=== PATIENT | male | born 1965 | race Caucasian/White ===

== ENCOUNTER 2018-11-05 11:57 | Inpatient (IN) ==
[2018-11-05] MEDS ORDERED: Naloxone 0.4 MG/ML INJ IVP PRN (16:24)
[2018-11-05] MEDS ORDERED: *HR* Heparin 5,000 UNIT/ML VIAL IVP PRN ×2 (16:32)
[2018-11-05] MEDS ORDERED: *HR* Heparin 5,000 UNIT/ML VIAL IVP ONE (16:32)
[2018-11-05 16:36] LABS: Heparin anti-factor XA UFH 0.22 IU/mL (0.30-0.70)
[2018-11-05] MEDS ORDERED: Nitroglycerin 0.4 MG TAB.SUBL SL PRN (16:36)
[2018-11-05] MEDS ORDERED: Ipratropium/Albuterol Neb 3 ML IH PRN (16:37)
[2018-11-05] MEDS ORDERED: Dextrose Gel 15 GM/37.5 ML TUBE PO PRN ×2 (16:38)
[2018-11-05] MEDS ORDERED: *HR* Dextrose 50 % in Water (Syg) 50 ML SYRINGE IVP PRN (16:38)
[2018-11-05] MEDS ORDERED: D5% in Water 1,000 ML IVC PRN (16:38)
[2018-11-05 16:48] LABS: Troponin I 0.78 ng/mL (< 0.04)
--- NOTE | 2018-11-05 16:53 | Internal Med History&Physical ---
<Bindu Easton - Last Filed: 11/05/18 17:54> Date of Encounter: 11/05/18 Time of Encounter: 16:00 Internal Medicine - H&P: HPI Chief complaint: Chest pain Admitted From: Hospital to Hospital Transfer History of present illness: Mr. Allred is a 53 year old male was transferred from [facility] after an episode of crushing chest pain this morning. Past medical history of OK with stent placement, COPD, diabetes and is a current smoker. He does have family history significant for cardiac disease. His most recent OK was in 2009 and had 2 different events of stent placement. He is unsure of how many stent he has. He also reported not taking any of his medication the past 7 months after losing his medical insurance. Upon further questioning he does not take daily baby aspirin or monitor his glucose. He reports chest pain ongoing for 3 days which worsened last night but did not want to come to the hospital. He reported this morning the chest pain was crushing and radiated to his left arm while he was at rest. At the onset of chest pain he described sensation of heaviness in as if someone was sitting on him. He denied any nausea or emesis during that event. [facility] troponins drawn which showed initial troponin 0.06 and unsure of the following troponin level. He also had an EKG showing T-wave depression just on lead 1. Repeat EKG showed normal sinus rhythm. He received sublingual nitroglycerin which did not see resolve his chest pain. He reports chest pain resolved 1-1/2 hour after being on heparin drip. Also during his stay in the ER [facility] he was noted to have unsustained event of ventricular tachycardia. His magnesium was noted to be 1.8 which was normal to low and his potassium was 3.6. His white count was noted to be mildly elevated at 10.0. Remainder of his labs were within normal limits. He was subsequently transferred to [facility] as he may require further cardiac intervention. Repeat troponin right now is 0.78. Continues to remain asymptomatic without any EKG changes. Currently he is resting in bed and is pain-free. He denies any stressful recent events or any recent illnesses. His vitals are reviewed and appears to be normal sinus rhythm with heart rate and blood pressure within normal limits. Denies fever, chills, nausea, emesis, shortness of breath, abdominal pain, orthopnea or PND. Past Med Surg Social Fam HX - Past Medical History Medical history: asthma, COPD, diabetes, myocardial infarction Psychiatric history: anxiety, depression - Past Surgical History Additional surgical history: heart stents, - Social History Smoking Status: Current every day smoker Packs per day: 1/2 pack Smokeless Tobacco Status: No Alcohol use: none Drug use: none Internal Medicine - H&P: Meds Allergy/AdvReac Type Severity Reaction Status Date / Time No Known Allergies Allergy Unverified 12/17/17 09:26 All Systems PM: A 10-system review of systems was performed and is negative for pertinent findings except as documented above in the HPI. - Constitutional Constitutional: no chills, no fever(s), no weakness - EENT Eyes: no blurry vision, no change in vision, no dry eye, no loss of vision - Cardiovascular Cardiovascular ROS IM: no chest pain, no dyspnea, no dyspnea on exertion, no orthopnea, no palpitations - Respiratory Respiratory: no cough, no dyspnea, no dyspnea on exertion - Gastrointestinal Gastrointestinal: no constipation, no diarrhea, no nausea - Musculoskeletal Musculoskeletal ROS IM: no numbness, no tingling - Integumentary Integumentary IM: no erythema, no rash - Neurological Neurological ROS: no numbness, no tingling, no weakness - Psychiatric Psychiatric: no anxiety, no depression - Endocrine Endocrine IM: no fatigue, no flushing - Constitutional Vitals: Temp Pulse Resp BP Pulse Ox 97.6 F 68 22 129/83 97 11/05/18 15:29 11/05/18 15:29 11/05/18 15:29 11/05/18 15:29 11/05/18 15:29 Exam: Gen: Vitals noted. No acute distress. Appears comfortable. Eyes: anicteric sclerae, moist conjunctivae; no lid-lag; Pupils equal and reactive to light HENT: Atraumatic; oropharynx clear with moist mucous membranes and no mucosal ulcerations; normal hard and soft palate Neck: Trachea midline; supple, no thyromegaly or lymphadenopathy, no carotid bruit Cardiac: RRR, no murmur, +S1/S2. No JVD noted. Pulmonary: CTA bilaterally, no wheezes, rales or rhonchi, equal chest expansion Abdomen: soft, nontender, no guarding, noted umbilical hernia MSK: ROM intact, no joint swelling noted Extremities: no edema, nontender calf; peripheral pulses +2 out of 4 bilateral lower extremities Skin: Normal temperature, turgor; no rash, ulcers or subcutaneous nodules Neuro: moves all extremities, no focal deficits. Psych: Appropriate mood and behavior. A&Ox3 - Assessment and Plan (1) NSTEMI (non-ST elevated myocardial infarction) Current Visit: Yes Status: Acute Assessment and plan: Presented to [facility] with chest pain ongoing for 3 days chest pain worsened today described as crushing with radiation to the left arm. Significant history of cardiovascular disease. Previous OK was in 2009 and has had episodes of stent placement. EKG at a showed T-wave depression in lead 1 and repeat was normal. Initial troponin was 0.06, repeat troponin now is 0.78. He is currently chest pain-free on heparin drip. -Cardiology is consulted -We will continue to trend troponin every 6 hours 3, if further has any EKG changes or chest pain consider urgent catheterization -Continue heparin drip -Ordered beta ed, aspirin, high intensity statin -Lipids pending for tomorrow -Sublingual nitroglycerin when necessary ordered -Continue telemetry (2) Arrhythmia Current Visit: Yes Status: Resolved Assessment and plan: Had an episode of nonsustained ventricular tachycardia at outside facility. Unknown cause as the likely due to ischemic event -Replete potassium -Continue telemetry -Continue to monitor electrolytes with BMP tomorrow Qualifiers: Arrhythmia type: ventricular tachycardia Qualified Code(s): I47.2 - Ventricular tachycardia (3) Diabetes Current Visit: Yes Status: Acute Assessment and plan: History of diabetes has not been taking any of his medications at home due to losing his insurance. Unsure as A1c -Continue to monitor glucose with low sliding scale ordered. 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 Currently comfortable in room air. On exam does have diffuse wheezing. Denies any cough or shortness of breath. Avoiding any beta agonist due to risk of arrhythmia Qualifiers: COPD type: emphysema Emphysema type: unspecified Qualified Code(s): J43.9 - Emphysema, unspecified (5) Morbid obesity Current Visit: Yes Status: Acute Assessment and plan: BMI of 43.4 Cardiac diet ordered (6) Tobacco abuse Current Visit: Yes Status: Acute Assessment and plan: History of tobacco use and is a current smoker. Reports history of smoking since age of 12 and used to smoke 3 packs per day and has decreased to 1 pack now. [id number] history. -Provided smoking cessation counseling (7) DVT prophylaxis Current Visit: Yes Status: Acute Assessment and plan: Currently on heparin drip - Time Spent With Patient Total time spent is greater than 50% in coordination of care (as documented) at patient's floor/unit and/or counseling patient: <Sebastian Mcleod - Last Filed: 11/05/18 19:32> Date of Encounter: 11/05/18 All Systems PM: A 10-system review of systems was performed and is negative for pertinent findings except as documented above in the HPI. Internal Med - H&P Results - Labs Labs: Cardiac Enzymes 11/05/18 Range/Units 16:11 Troponin I 0.78 H* (< 0.04) ng/mL - Time Spent With Patient Total time spent is greater than 50% in coordination of care (as documented) at patient's floor/unit and/or counseling patient: - Attending Attestation Patient seen and examined independently. Objective data has been reviewed including outside hospital records including labs, imaging, and ECGs. I agree with the plan of care as documented above by the resident, with the following comments: 53 M w hx CAD s/p stents, morbid obesity, smoker, HTN, DM2, who p/w chest pain, TWI in single lead on single ECG, and elevated trop, concerning for NSTEMI. Pt given ASA and brillinta, hep gtt started, and transferred here for cardiology evaluation and likely heart cath. NPO@AK. Start metoprolol 12.5 bid and atorvastatin 80, defer ACEi until after [facility]. Currently chest pain free and resting comfortably.
[2018-11-05] MEDS: Heparin 25,000 UNIT/250 ML D5W 25,000 UNIT/250 ML IV.SOLN IVC SCH (17:10)
[2018-11-05] MEDS ORDERED: Levalbuterol Neb 1.25 MG/3 ML IH PRN (17:16)
[2018-11-05 17:24] LABS: Magnesium 1.7 mg/dL (1.6-2.6)
[2018-11-05 17:38] LABS: Estimated Average Glucose 240 mg/dl
[2018-11-05 17:58] LABS: INR 1.1; Prothrombin Time 12.8 Seconds (9.4-12.1)
[2018-11-05] MEDS ORDERED: Insulin LISPRO 300 UNITS/3 ML VIAL SQ SCH ×2 (18:00→21:00)
[2018-11-05] MEDS: Insulin LISPRO 300 UNITS/3 ML VIAL SQ SCH (21:32)
[2018-11-06 04:32] LABS: Basophils # 0.1 K/mcL (0.0-0.2); Basophils % 0.7 %; Eosinophils # 0.3 K/mcL (0.0-0.6); Eosinophils % 3.2 %; Hematocrit 45.3 % (37.5-50.1); Hemoglobin 14.8 g/dL (12.9-16.9); Immature Granulocytes % 1.4 % (0-4); Lymphocytes # 3.8 K/mcL (0.6-4.6); Lymphocytes % 40.1 %; Mean Corpuscular HGB Conc 32.7 g/dL (31.6-35.5); Mean Corpuscular Hemoglobin 30.4 pg (28.0-33.3); Mean Platelet Volume 10.7 fL (9.4-12.4); Monocytes # 0.6 K/mcL (0.0-1.3); Monocytes % 6.3 %; Neutrophils # 4.6 K/mcL (1.6-8.9); Platelet Count 241 K/mcL (140-400); Red Blood Count 4.87 M/mcL (4.19-5.50); Red Cell Distribution Width 13.5 % (11.5-14.5); Segmented Neutrophils % 48.3 %
[2018-11-06] MEDS: Heparin 25,000 UNIT/250 ML D5W 25,000 UNIT/250 ML IV.SOLN IVC SCH (04:49)
[2018-11-06 04:52] LABS: BUN/Creatinine Ratio 17 (6-26); Blood Urea Nitrogen 9 mg/dL (6-20); Carbon Dioxide 22 mEq/L (23-29); Chloride 108 mEq/L (98-107); Chol/HDL Ratio 7.1 (0-4.9); Cholesterol 233 mg/dL (< 200); Glucose 139 mg/dL (70-105); HDL Cholesterol 33 mg/dL (40-59); LDL Cholesterol,Calculated 125 mg/dL (0-99); Osmolality,Calculated 289 (280-300); Potassium 3.9 mEq/L (3.5-5.1); Sodium 139 mEq/L (136-145); Triglycerides 376 mg/dL (< 150); eGFR For Non-African Americans > 60 (> 60)
--- NOTE | 2018-11-06 08:24 | Cardiology Consult Note ---
<Diego Aquino - Last Filed: 11/06/18 11:14> Date of Encounter: 11/06/18 Time of Encounter: 08:24 Assessment and Plan (1) NSTEMI (non-ST elevated myocardial infarction) Current Visit: Yes Status: Acute 53 year old male with CAD with cardiac stents x3, COPD, diabetes mellitus 2, and tobacco dependence who presented from [facility] complaining of intermittent chest pain for the past 3 days and one episode of ventricular tachycardia prior to transfer. Chest pain was a pressure-like crushing sensation at rest that radiated to his left arm. Chest pain did not improve after sublingual nitroglycerin. Patient reports stopping all his meds including aspirin and Plavix seven months ago after losing his insurance. Serial troponin peaked at 1.64 EKG revealed normal sinus rhythm with T-wave inversions in leads V2-V3. Patient is on a heparin drip. Patient is currently chest pain free. Echo pending. Continue aspirin, Brilinta, beta ed, and statin. NPO, anticipate [facility] this afternoon. (2) CAD (coronary artery disease) Current Visit: Yes Status: Chronic TTE 12/17/17 revealed LVEF 55-60%, mild left ventricular diastolic dysfunction, normal right ventricular structure and function, no significant valvular dysfunction, and no pulmonary hypertension. Repeat echo pending. Nuclear stress test 12/17/17 perfusion imaging was negative for ischemia or in farct. Apical thinning artifact. Pharmacologic stress ECG is nondiagnostic for ischemia due to baseline nonspecific ST and T abnormalities. Patient had chest pain/pressure during pharmacologic stress. Gated EF < 59%. In 2003, he underwent angioplasty and stent of LAD lesion. In 2009, he had a second procedure again with angioplasty and stent of an LAD lesion and a circumflex lesion. Continue aspirin, Brilinta, beta ed, and statin. Qualifiers: Coronary Disease-Associated Artery/Lesion type: [place] artery [place] vs. transplanted heart: [place] heart Associated angina: angina presence unspecified Qualified Code(s): I25.10 - Atherosclerotic heart disease of [place] coronary artery without angina pectoris (3) HTN (hypertension) Current Visit: No Status: Chronic Blood pressure is controlled. Continue beta ed. Qualifiers: Hypertension type: essential hypertension Qualified Code(s): I10 - Essential (primary) hypertension (4) HLD (hyperlipidemia) Current Visit: Yes Status: Chronic Continue statin. Qualifiers: Hyperlipidemia type: unspecified Qualified Code(s): E78.5 - Hyperlipidemia, unspecified (5) DM type 2 (diabetes mellitus, type 2) Current Visit: No Status: Chronic Management per primary team. 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 Qualifiers: Hypothyroidism type: unspecified Qualified Code(s): E03.9 - Hypothyroidism, unspecified (7) COPD (chronic obstructive pulmonary disease) Current Visit: No Status: Chronic Management per primary team. Qualifiers: COPD type: emphysema Emphysema type: unspecified Qualified Code(s): J43.9 - Emphysema, unspecified (8) Tobacco abuse Current Visit: Yes Status: Chronic Tobacco cessation discussed. (9) RORY on CPAP Current Visit: No Status: Chronic Management per primary team. (10) BMI 40.0-44.9, adult Current Visit: Yes Status: Chronic Lifestyle modification. Discussion w patient/family: The assessment and plan as outlined above was discussed with the patient and/or family members who expressed understanding and agreement. All questions were answered. Thank you for involving us in the care of your patient. Please call with any questions. History of Present Illness Consult date: 11/06/18 Requesting physician: Bindu Easton Consult reason: Chest pain with elevated troponin Chief complaint: Chest pain History of present illness: Mr. Allred is a 53 year old male with a past medical history of hypertension, hyperlipidemia, CAD with cardiac stents x3, COPD, diabetes mellitus 2, hypothyroidism, morbid obesity, RORY on CPAP, and tobacco dependence who presen pilar from [facility] complaining of intermittent chest pain for the past 3 days and one episode of ventricular tachycardia prior to transfer. Chest pain was a pressure-like crushing sensation at rest that radiated to his left arm. He denies any associated nausea, vomiting, diaphoresis, or shortness of breath. Of note, patient reports stopping all his meds including aspirin and Plavix seven months ago after losing his insurance. Serial troponin peaked at 1.64 and EKG revealed normal sinus rhythm with T-wave inversions in leads V2-V3. Patient was started on heparin drip. Chest pain did not improve after sublingual nitroglycerin. Patient is currently chest pain free. Previous testing: TTE 12/17/17 revealed LVEF 55-60%, mild left ventricular diastolic dysfunction, normal right ventricular structure and function, no significant valvular dysfunction, and no pulmonary hypertension. Nuclear stress test 12/17/17 perfusion imaging was negative for ischemia or infarct. Apical thinning artifact. Pharmacologic stress ECG is nondiagnostic for ischemia due to baseline nonspecific ST and T abnormalities. Patient had chest pain/pressure during pharmacologic stress. Gated EF < 59%. In 2003, he underwent angioplasty and stent of LAD lesion. In 2009, he had a second procedure again with angioplasty and stent of an LAD lesion and a circumflex lesion. Past Med Surg Social Fam HX - Past Medical History Medical history: asthma, COPD, diabetes, myocardial infarction Psychiatric history: anxiety, depression - Past Surgical History Additional surgical history: heart stents, - Social History Smoking Status: Current every day smoker Packs per day: 1/2 pack Smokeless Tobacco Status: No Alcohol use: none Drug use: none - Family History Mother Living Status: Still Living Hx Family Cardiac Disorders: Yes (Hypertension) Hx Family Cancer: Yes Hx Family Endocrine Disorder: Yes (Diabetes) Father Living Status: Still Living Hx Family Cardiac Disorders: Yes (Hypertension) Hx Family Medical Disorders: Yes (COPD) Sister Hx Family Endocrine Disorder: Yes (Diabetes) Hx Family Medical Disorders: Yes (DVT) Daughter Hx Family Cancer: Yes (Thyroid) Hx Family Autoimmune Disorders: Yes (Thyroid disease) Medications and Allergies No Known Home Drugs 11/06/18 [History] Allergy/AdvReac Type Severity Reaction Status Date / Time No Known Allergies Allergy Unverified 11/06/18 10:37 All Systems Review: The remainder of the systems were reviewed and are negative - Constitutional Constitutional: no chills, no fatigue, no fever(s), no lethargy, no weakness - EENT Nose, mouth and throat: no dysphagia, no sore throat - Cardiovascular Cardiovascular: chest pain at rest, chest pain with exertion, irregular heart rhythm, palpitations, no dyspnea at rest, no dyspnea on exertion, no leg edema, no orthopnea, no syncope - Respiratory Respiratory: no cough, no dyspnea - Gastrointestinal Gastrointestinal: no abdominal pain, no nausea - Genitourinary Genitourinary: no dysuria, no hematuria - Musculoskeletal Musculoskeletal: no abnormal gait, no arthralgias, no myalgias - Integumentary Integumentary: no erythema, no rash - Neurological Neurological: no dizziness, no syncope - Psychiatric Psychiatric: no anxiety, no depression - Hematological/Lymphatic Hematologic/Lymphatic: no easy bleeding, no easy bruising Physical Examination Vital Signs, Last 4 Hours Temp Pulse Resp BP Pulse Ox 11/06/18 07:55 98.2 F 81 16 124/80 96 11/06/18 04:41 98.1 F 81 16 118/72 93 General: Conversant, No Apparent Distress (morbidly obese) HEENT: Atraumatic, Normocephaly, Other (mucous membranes dry) Neck: No JVD, Normal carotid pulses Cardiac: Reg Rate and Rhythm, Normal S1 and S2, No Murmur Lungs: Other (mild expiratory wheezing) Neuro: Alert and responsive, No focal deficits noted Abdomen: Soft, Non-Tender Skin: No rashes noted on visualized skin Musculoskeletal: No Chest Wall Tenderness Extremities: No Clubbing, No Cyanosis, No Edema, Normal Pulses Results 11/06/18 04:00 11/06/18 04:00 Lab Results 11/05/18 11/05/18 11/05/18 16:11 16:11 22:28 WBC Hgb Hct Plt Count INR 1.1 Sodium Potassium Chloride Carbon Dioxide BUN Creatinine Glucose Calcium Magnesium 1.7 Troponin I 0.78 H* 1.64 H* 11/06/18 11/06/18 11/06/18 04:00 04:00 04:00 WBC 9.6 Hgb 14.8 Hct 45.3 Plt Count 241 INR Sodium 139 Potassium 3.9 Chloride 108 H Carbon Dioxide 22 L BUN 9 Creatinine 0.52 L Glucose 139 H Calcium 9.0 Magnesium Troponin I 1.18 H* - EKG Interpretation EKG results cardiology: personally reviewed, sinus rhythm (HR 77, T-wave inversions in leads V2-V3) Consult Discharge Plan - Plan Referrals: Enriqueta Mathews, [facility] [Primary Care Provider] - <Pamela A - Last Filed: 11/06/18 16:03> Date of Encounter: 11/06/18 - Attending Attestation I have personally performed a face to face evaluation on this patient. I have reviewed and agree with the documented findings and care plan as documented by the resident. History and Exam by me shows: 53-year-old male with diabetes, CAD, current everyday smoker, admitted for NSTEMI. He needs cardiac catheterization.Risks, benefits, alternatives were explained to the patient and he wishes to proceed. All questions were answered. He was urged to quit smoking. Lifestyle modification recommended to ameliorate risk of cardiac events. Thanks, Gutierrez Santiago MD FAC Assessment and Plan Discussion w patient/family: The assessment and plan as outlined above was discussed with the patient and/or family members who expressed understanding and agreement. All questions were answered. Thank you for involving us in the care of your patient. Please call with any questions. History of Present Illness History of present illness: Mr. Allred is a 53 year old male All Systems Review: The remainder of the systems were reviewed and are negative Physical Examination Vital Signs, Last 4 Hours Temp Pulse Resp BP Pulse Ox 11/06/18 15:15 97.7 F 69 16 128/87 97 Results 11/06/18 04:00 11/06/18 04:00 Lab Results 11/05/18 11/05/18 11/05/18 16:11 16:11 22:28 WBC Hgb Hct Plt Count INR 1.1 Sodium Potassium Chloride Carbon Dioxide BUN Creatinine Glucose Calcium Magnesium 1.7 Troponin I 0.78 H* 1.64 H* TSH 11/06/18 11/06/18 11/06/18 04:00 04:00 04:00 WBC 9.6 Hgb 14.8 Hct 45.3 Plt Count 241 INR Sodium 139 Potassium 3.9 Chloride 108 H Carbon Dioxide 22 L BUN 9 Creatinine 0.52 L Glucose 139 H Calcium 9.0 Magnesium Troponin I 1.18 H* TSH 2.652 11/06/18 10:05 WBC Hgb Hct Plt Count INR Sodium Potassium Chloride Carbon Dioxide BUN Creatinine Glucose Calcium Magnesium Troponin I 0.75 H* TSH
[2018-11-06] MEDS: Insulin LISPRO 300 UNITS/3 ML VIAL SQ SCH ×4 (08:25→20:04)
[2018-11-06] MEDS: *HR* Ticagrelor 90 MG TABLET PO SCH ×2 (08:25→20:01)
[2018-11-06] MEDS: Aspirin 81 MG TAB.CHEW PO SCH (08:25)
[2018-11-06 11:24] LABS: Thyroid Stimulating Hormone 2.652 mcIU/mL (0.340-5.600)
[2018-11-06] MEDS ORDERED: *HR* Heparin 10,000 UNIT/10 ML VIAL ONE (12:41)
[2018-11-06] MEDS ORDERED: 0.9 % Sodium Chloride 1,000 ML ONE ×2 (12:41→12:43)
[2018-11-06] MEDS ORDERED: Heparin 1,000 UNITS/500 mL 500 ML ONE (12:41)
[2018-11-06] MEDS ORDERED: Nitroglycerin 1,000 MCG/10 ML VIAL IV ONE (12:41)
[2018-11-06] MEDS ORDERED: ISOVUE-370 200 ML INFUS..BTL ONE ×2 (12:41→14:36)
[2018-11-06] MEDS ORDERED: *HR* Midazolam HCl 2 MG/2 ML VIAL ONE (13:56)
[2018-11-06] MEDS ORDERED: *HR* FentaNYL (PF) 100 MCG/2 ML VIAL ONE (13:56)
[2018-11-06] MEDS ORDERED: Tirofiban 12.5 MG/250ML 12.5 MG/250 ML BAG ONE (14:20)
[2018-11-06] MEDS ORDERED: *HR* Ticagrelor 90 MG TABLET ONE (14:48)
--- NOTE | 2018-11-06 15:08 | Pre-Sedation Evaluation ---
Pre-sedation evaluation - Pre-sedation checklist Date of procedure: 11/06/18 Procedure: heart cath Recent Vitals: Last Vital Signs Temp 97.7 F 11/06/18 11:05 Pulse 62 11/06/18 11:05 Resp 18 11/06/18 11:05 BP 122/90 11/06/18 11:05 Pulse Ox 98 11/06/18 11:05 H&P (including ROS) documented in medical record: Yes Previous reaction to sedatives/anesthetics: No Dietary Status: NPO after Midnight Dentition: poor dentition ASA Classification *see protocol: CLASS II-Mild systemic disease Cardiac Registry (Cardio Only) - Functional Capacity Functional Capacity: >=4 METS with symptoms - Clincal Frailty Scale Clinical Frailty Scale: Managing Well
[2018-11-06] MEDS ORDERED: Tirofiban 12.5 MG/250ML 12.5 MG/250 ML BAG IVC SCH (15:15)
--- NOTE | 2018-11-06 15:20 | Invasive Diagnostic Lab Proc ---
Name: Darin Allred Date of Study: 11/06/2018 Date: 1965 Ht: 61.8in Medical Record#: [id number] Age: 53 Wt: 238.10lb Gender: Male BSA: 2.05 Order #: [id number] BMI: 43.82 Physicians Procedure Physician: David Lyn MD Referring MD: Referring MD: Staff Name Position Time In Alida Sterling RT (R) Monitor 02:01 PM Christos Deshpande RT (R) Scrub 02:02 PM Stacy Pa RN Shop Steward 02:02 PM Indications Indication Non-Stemi Procedures Performed Procedure L HRT ARTERY/VENTRICLE ANGIO PRQ CARDIAC ANGIOPLAST 1 ART Pre-Procedure Checklist Informed consent is complete signed and on chart. H&P is on chart. ID band is on and ID verified with patient. Patient NPO for procedure The procedure was described for the patient and questions were answered. Blood Pressure: 124/80 ECG is on chart. Rhythm: NSR Plan of Care Patient will tolerate the procedure without complications. Adequate level of comfort will be maintained. Hemodynamics will remain stable Patient will recover from procedure without complications. Respiratory function will be maintained. Cardiac rhythm will remain stable. Patient temperature will be maintained. Patient and/or family have verbalized understanding of the procedure. Patient Education Chief Complaint/Reason for Test: Cardiac Cath Developmental Category: Adult (18-64 years) Developmentally Appropriate for Age: Yes Learning Barriers: None Education Needs: Procedure Education Method: Verbal Information Taught: Cardiac Cath Educational Evaluation: Able to repeat information Intravenous Access Time IV Size Location DC'd Fluid/Drip Rate Units RN 12:11 PM 0.9NaCl 25 ml/hr Allergies NKDA Vital Signs Time BP (mmHg) HR (bpm) O2 Sat. RR (bpm) LOC 12:11 PM 124 / 80 81 96 % 15 5 = Fully awake and oriented or at pre-proc level 03:00 PM 121 / 87 65 97 % 16 02:45 PM 133 / 89 61 96 % 14 02:30 PM 112 / 75 65 92 % 16 02:15 PM 120 / 69 70 96 % 15 02:00 PM 126 / 82 67 96 % / % Procedural Medications Time Medication Dose Units Method Given By 02:03 PM Oxygen 2 L/min nasal cannula Akash Sevilla RN 02:03 PM Versed 1 mg Intravenous Akash Sevilla RN 02:03 PM Fentanyl 50 mcg Intravenous Akash Sevilla RN 02:10 PM Lidocaine 2% 10 ml Subcutaneous David Lyn MD 02:11 PM Versed 0.5 mg Intravenous Stacy Pa RN 02:11 PM Lidocaine 2% 19 ml Subcutaneous David Lyn MD 02:21 PM Aggrastat 5mg/100ml 42 ml Intravenous Akash Sevilla RN 02:22 PM Aggrastat 12.5mg/250ml 15 ml Intravenous Aaksh Sevilla RN 02:22 PM Heparin 5000 units Intravenous Akash Sevilla RN 02:33 PM Nitroglycerin 100 mcg Intracoronary Esteban Lyn MD 02:40 PM Nitroglycerin 100 mcg Intracoronary Esteban Lyn MD 02:47 PM Brillinta 180 mg Orally Stacy Pa RN ASA Classification: CLASS II- Mild systemic disease (i.e. well-controlled diabetes, hypertension, asthma, cigarette smoking) Juels Score Preprocedure Postprocedure Activity 2- Moves 4 extremities sustained head lift Activity 2- Moves 4 extremities sustained head lift Circulation 2- SBP +/= 20 points of pre-anesthetic level Circulation 2- SBP +/= 20 points of pre-anesthetic level Consciousness 2- Awake and alert oriented x 3 Consciousness 2- Awake and alert oriented x 3 O2 Saturation 2- Able to maintain O2 satruation of 92% on room air O2 Saturation 2- Able to maintain O2 satruation of 92% on room air Respiratory 2- Able to deep breathe and cough well Respiratory 2- Able to deep breathe and cough well Total Score 10 Total Score 10 Contrast Agent: Isovue Diagnostic Contrast: 190 ml Total Contrast: 190 ml Fluoro Dose: 163 mGy Procedure Log Time Note Enter By 01:57 PM Procedure start 13:57 [email or web address] 02:01 PM Pt arrived to labeling strategist 1 at 14:01 [email or web address] 02:02 PM Alida Sterling RT (R) Position: Monitor Time in: 14:corry 02:02 PM Christos Deshpande RT (R) Position: Scrub Time in: 14:02 [email or web address] 02:02 PM Stacy Pa RN Position: Shop Steward Time in: 14:02 [email or web address] 02:02 PM Patient charges- Angio tray pack, Navilyst 3mm J, Pulse Oximetry and ACIST tubing and transducer [email or web address] 02:02 PM IV Supplies used: J loop Angio Cath. 02:02 PM Case Delayed No : PM Hair removed from procedure site in holding area using clippers. Bilateral groin prepped with Chloraprep by Alida Sterling (R), then patient was draped. Skin intact. 02:02 PM Physician arrived 14:02 :02 PM ASA Class CLASS II- Mild systemic disease (i.e. well-controlled diabetes, hypertension, asthma, cigarette smoking) [email or web address]: PM Meet and greet completed : PM Sign in performed according to hospital policy. Informed consent was obtained. 02:03 PM Time: 14:03 Oxygen on at 2 L/min per nasal cannula by Akash Sevilla RN 02:03 PM Time: 14:03 Versed 1 mg Intravenous Given by Akash Sevilla RN 02:03 PM Time: 14:03 Fentanyl 50 mcg Intravenous Given by Akash Sevilla RN 02:10 PM Time out was performed according to hospital policy. Conscious sedation and anesthesia was achieved (see medication log with in this report above) 02:10 PM Time: 14:10 10 ml Lidocaine 2% to right groin Subcutaneous Given by David Lyn MD padmini 02:11 PM Time: 14:11 Versed 0.5 mg Intravenous Given by Stacy Pa RN elley 02:11 PM Time: 14:11 19 ml Lidocaine 2% to right groin Subcutaneous Given by David Lyn MD padmini 02:12 PM Micro-Introducer Kit utilized for sheath placement 02:12 PM Access obtained by percutaneous puncture. 6Fr 10cm [facility] sheath placed in right Femoral artery. [id number] 02:12 PM 0.035 145cm Navilyst 3mmJ wire [id number] 02:13 PM 5Fr FR 4 catheter inserted over the wire [facility] 02:13 PM RCA angiography performed in multiple views. 02:15 PM Coronary Dominance: right 02:15 PM Catheter removed 02:16 PM 6Fr XB LAD 3.5 Lueders Bright-Tip guide catheter was used to cannulate the PCI vessel successfully. reused? No [email or web address] 02:16 PM Inflation device was opened. [email or web address] 02:16 PM LCA angiography performed in multiple views. [email or web address] 02:18 PM Lesion found in Mid LAD. Pre Stenosis: 90 Pre SALTY Flow: 3: Complete and Brisk Flow/Perfusion [email or web address] 02:22 PM Time: 14:21 Aggrastat 5mg/100ml 42 ml Intravenous Given by Akash Sevilla RN More pump [email or web address] 02:22 PM Time: 14:22 Aggrastat 12.5mg/250ml 15 ml Intravenous Given by Akash Sevilla RN More pump [email or web address] 02:22 PM .014 [employer] [place] 190cm guide wire across target lesion- successful. reused? No [email or web address] 02:22 PM Time: 14:22 Heparin 5000 units Intravenous Given by Akash Sevilla RN [email or web address] 02:24 PM 2.0 mm x 20 mm Emerge Monorail balloon across target lesion- successful. reused? No [email or web address] 02:29 PM Balloon inflated @ 6 amee for 9 seconds [email or web address] 02:29 PM Balloon inflated @ 6 amee for 10 seconds [email or web address] 02:29 PM Balloon inflated @ 12 amee for 6 seconds [email or web address] 02:29 PM Balloon inflated @ 12 amee for 3 seconds [email or web address] 02:31 PM Balloon inflated @ 6 amee for 4 seconds [email or web address] 02:31 PM Balloon inflated @ 6 amee for 4 seconds [email or web address] 02:31 PM Balloon inflated @ 6 amee for 3 seconds [email or web address] 02:32 PM Balloon catheter removed intact. [email or web address] 02:33 PM 3.0 mm x 20mm NC Emerge balloon across target lesion- successful. reused? No [email or web address] 02:33 PM Time: 14:33 Nitroglycerin 100 mcg Intracoronary Given by Esteban Lyn MD [email or web address] 02:34 PM Balloon inflated @ 12 amee for 8 seconds [email or web address] 02:35 PM Balloon inflated @ 16 amee for 8 seconds [email or web address] 02:35 PM Balloon inflated @ 18 amee for 11 seconds [email or web address] 02:37 PM Balloon catheter removed intact. [email or web address] 02:40 PM Time: 14:40 Nitroglycerin 100 mcg Intracoronary Given by Esteban Lyn [email or web address] 02:42 PM Lesion found in 1st Diagonal. Pre Stenosis: 70 Pre SALTY Flow: 3: Complete and Brisk Flow/Perfusion [email or web address] 02:42 PM 2.0 mm x 12 mm Emerge Monorail balloon across target lesion- successful. reused? No [email or web address] 02:44 PM Balloon catheter removed intact. [email or web address] 02:44 PM Guide wire removed intact. [email or web address] 02:44 PM Guide catheter removed intact. [email or web address] 02:45 PM 5Fr Pigtail catheter inserted over the wire [facility] [email or web address] 02:45 PM Catheter crossed the aortic valve and was selectively placed in the left ventricle. Pressures recorded on pullback for left heart catheterization. [email or web address] 02:46 PM Bolus angiogram of left Ventricle complete: 10 ml/sec for a total of 20 mls [email or web address] 02:46 PM Catheter removed [email or web address] 02:47 PM Time: 14:47 Brillinta 180 mg Orally Given by Stacy Pa RN 3 02:52 PM Lesion found in Mid Circumflex. Pre Stenosis: 25 Pre SALTY Flow: 3: Complete and Brisk Flow/Perfusion [email or web address] 02:53 PM Lesion found in Distal LAD. Pre Stenosis: 99 Pre SALTY Flow: 3: Complete and Brisk Flow/Perfusion [email or web address] 02:53 PM Lesion found in Proximal RCA. Pre Stenosis: 65 Pre SALTY Flow: 2: Partial Flow/Perfusion (> 1 but < 3) [email or web address] 02:55 PM Procedure completed at 14:55 11/06/2018 [email or web address] 02:55 PM Did you address SALTY flow and Dominance? Yes [email or web address] 02:56 PM Sign out completed: Radiation Dose 1653.74 mGy, 163.1 Gy/cm2 Fluoro Time: 9.9 Isovue 370 - 200ml contrast 190 ml given by David Lyn MD. Complications: None. 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 Sedation minutes 53. Cardiac Rehab Consult needed: Yes. Confirmed administered medications: Yes [email or web address] 02:56 PM Isovue 370 - 200ml,1 Bottle(s) used. [email or web address] 02:56 PM Arterial sheath pulled, Angio-seal closure device used and was Successful S/N. [email or web address] 02:56 PM Estimated Blood Loss: minimal [email or web address] 02:56 PM Post ECG NSR [email or web address] 02:56 PM Post Blood Pressure 121/87 [email or web address] 02:56 PM 14:56 Post Pulses Bilateral DP & PT 2+ [email or web address] 02:57 PM Information taught Cardiac Cath, PCI, and Angioseal [email or web address] 02:57 PM Education needs Procedure, Plan of Care, and Disease Process [email or web address] 02:57 PM Learning barriers :None [email or web address] 02:57 PM Education Methods Verbal [email or web address] 02:57 PM Education evaluation Able to repeat information [email or web address] 02:57 PM Site status No bleeding/hematoma - Rt Groin as reported by Christos Deshpande RT (R) at 14:57 [email or web address] 02:57 PM Opsite applied [email or web address] 02:57 PM Delay to floor No [email or web address] 02:57 PM Family placed in consult room. [email or web address] 02:57 PM Complications: None [email or web address] 03:01 PM Report given to Memory RN Pt taken to 2S Room #28. 15:00 [email or web address] 03:01 PM Patient out of room: 15:01 [email or web address] Complications Complication None None Hemodynamics Pressures Site Systolic/A Wave Diastolic/V Wave Mean AO 111 80 95 AO 105 74 89 AO 108 77 91 LV 108 32 108 LV 125 12 16 Post Procedure Information Blood Pressure: 121/87 mmHg Rhythm: NSR Post procedural instructions were given Closure Device Time Device Success/Fail 11/06/2018 2:50:00 PM Angio-Seal VIP Successful Site Checks Time Location Status Staff Sheath In? Note 02:57 PM Rt Groin No bleeding/hematoma Christos Deshpande RT (R) Pulses Time Site Pre-Procedure Post-Procedure Note 11/06/2018 12:11:00 PM Bilateral DP & PT 2+ 11/06/2018 12:11:00 PM Bilateral radial 2+ 2:56:00 PM Bilateral DP & PT 2+ Updated by Alida Sterling RT(R) on 11/06/2018 3:09:28 PM electronically signed on 11/06/2018 3:09:52 PM with status of Final
--- NOTE | 2018-11-06 15:26 | Internal Med Progress Note ---
<Bindu Easton - Last Filed: 11/06/18 18:05> Hospitalist Progress Note - Encounter Date of Encounter: 11/06/18 Time of Encounter: 09:30 - Subjective Interval History: Mr. Armijo was seen at bedside this morning. His vitals are reviewed and he remained normotensive and afebrile overnight. He was resting comfortably and reported his chest pain has resolved and has had no episodes since his admission. He denied any palpitations. He also denied nausea, fever, chills, shortness of breath, abdominal pain. - Exam Vitals: Temp Pulse Resp BP Pulse Ox 97.7 F 69 16 128/87 97 11/06/18 15:15 11/06/18 15:15 11/06/18 15:15 11/06/18 15:15 11/06/18 15:15 Exam: Gen: Vitals noted. No acute distress. Appears comfortable. Eyes: anicteric sclerae, moist conjunctivae; no lid-lag; Pupils equal and reactive to light HENT: Atraumatic; oropharynx clear with moist mucous membranes and no mucosal ulcerations; normal hard and soft palate Neck: Trachea midline; supple, no thyromegaly or lymphadenopathy, no carotid bruit Cardiac: RRR, no murmur, +S1/S2. No JVD noted. Pulmonary: CTA bilaterally, no wheezes, rales or rhonchi, equal chest expansion Abdomen: soft, nontender, no guarding, noted umbilical hernia MSK: ROM intact, no joint swelling noted Extremities: no edema, nontender calf; peripheral pulses +2 out of 4 bilateral lower extremities Skin: Normal temperature, turgor; no rash, ulcers or subcutaneous nodules Neuro: moves all extremities, no focal deficits. Psych: Appropriate mood and behavior. A&Ox3 - Assessment and Plan (1) NSTEMI (non-ST elevated myocardial infarction) Current Visit: Yes Status: Acute Assessment and Plan: Presented to [facility] with chest pain ongoing for 3 days chest pa in worsened today described as crushing with radiation to the left arm. Significant history of cardiovascular disease. Previous AL was in 2009 and has had episodes of stent placement. EKG at a showed T-wave depression in lead 1 and repeat was normal. This morning his EKG showed T-wave inversions in leads V2 to V5 consistent with anterior ischemia Troponin continued to elevate from 0.06, 0.78 to 1.64 overnight but has decreased to 0.75 this morning -Underwent heart catheterization today and had balloon angioplasty -Heparin drip discontinued -Ordered beta ed, aspirin, high intensity statin -Currently holding lisinopril given he underwent Left heart catheter and does not do not want to worsen his renal impairment -Lipids pending for tomorrow -Sublingual nitroglycerin when necessary ordered -Continue telemetry (2) COPD (chronic obstructive pulmonary disease) Current Visit: No Status: Chronic Assessment and Plan: History of COPD currently not on any inhalers after losing his medical in surance. Currently comfortable in room air. On exam does have diffuse wheezing. Denies any cough or shortness of breath. Avoiding any beta agonist due to risk of arrhythmia (3) Tobacco abuse Current Visit: Yes Status: Chronic Assessment and Plan: History of tobacco use and is a current smoker. Reports history of smoking since age of 12 and used to smoke 3 packs per day and has decreased to 1 pack now. [id number] history. -Provided smoking cessation counseling (4) HTN (hypertension) Current Visit: No Status: Chronic Assessment and Plan: Does not report previous history of hypertension but today his blood pressure is noted to be elevated specifically diastolic. Continue metoprolol 12.5 mg twice a day. Added hydralazine when necessary (5) HLD (hyperlipidemia) Current Visit: Yes Status: Chronic Assessment and Plan: History cholesterol is elevated at 233 with LDL elevated at 125. Currently on high intensity statin, continue 80 mg atorvastatin. (6) CAD (coronary artery disease) Current Visit: Yes Status: Chronic Assessment and Plan: History of significant coronary artery disease in him and his family. Previous AL in 2009 and has stents. Centered with chest pain with troponin elevation and had EKG changes overnight. Underwent balloon angioplasty. (7) DM type 2 (diabetes mellitus, type 2) Current Visit: No Status: Chronic Assessment and Plan: History of type 2 diabetes was not taking any medications at home due to possible follow-up. His A1c is noted to be 10.0 and we discussed the importance of managing his glucose given his cardiovascular disease. Continue diabetic diet (8) BMI 40.0-44.9, adult Current Visit: Yes Status: Chronic Assessment and Plan: Does have BMI 43.5. Discussed importance of following diabetic and cardiac diet upon discharge given his elevated A1c and his cardiovascular disease. Continue diabetic and cardiac diet during his stay DVT Prophylaxis: Heparin subcutaneous - Time Spent with Patient Total time spent is greater than 50% in coordination of care (as documented) at patient's floor/unit and/or counseling patient: Internal Medicine: Result - Labs CBC & Chem 7: 11/06/18 04:00 11/06/18 04:00 Labs: Short CBC 11/06/18 Range/Units 04:00 WBC 9.6 (4.3-11.1) K/mcL Hgb 14.8 (12.9-16.9) g/dL Hct 45.3 (37.5-50.1) % Plt Count 241 (140-400) K/mcL Neutrophils # 4.6 (1.6-8.9) K/mcL BMP 11/06/18 04:00 Sodium 139 Potassium 3.9 Chloride 108 H Carbon Dioxide 22 L BUN 9 Creatinine 0.52 L Glucose 139 H Calcium 9.0 Cardiac Enzymes 11/05/18 11/05/18 11/06/18 Range/Units 16:11 22:28 04:00 Troponin I 0.78 H* 1.64 H* 1.18 H* (< 0.04) ng/mL 11/06/18 Range/Units 10:05 Troponin I 0.75 H* (< 0.04) ng/mL - ABG Interpretation ABG results: PT/INR, D-dimer PT 12.8 Seconds (9.4-12.1) H 11/05/18 16:11 Consult Discharge Plan - Plan Referrals: Enriqueta Mathews, [facility] [employer] [Primary Care Provider] - <Sebastian Mcleod - Last Filed: 11/06/18 21:15> Hospitalist Progress Note - Encounter Date of Encounter: 11/06/18 Internal Medicine: Result - Labs CBC & Chem 7: 11/06/18 04:00 11/06/18 04:00 Labs: Short CBC 11/06/18 Range/Units 04:00 WBC 9.6 (4.3-11.1) K/mcL Hgb 14.8 (12.9-16.9) g/dL Hct 45.3 (37.5-50.1) % Plt Count 241 (140-400) K/mcL Neutrophils # 4.6 (1.6-8.9) K/mcL BMP 11/06/18 04:00 Sodium 139 Potassium 3.9 Chloride 108 H Carbon Dioxide 22 L BUN 9 Creatinine 0.52 L Glucose 139 H Calcium 9.0 Cardiac Enzymes 11/05/18 11/06/18 11/06/18 Range/Units 22:28 04:00 10:05 Troponin I 1.64 H* 1.18 H* 0.75 H* (< 0.04) ng/mL - ABG Interpretation ABG results: PT/INR, D-dimer PT 12.8 Seconds (9.4-12.1) H 11/05/18 16:11 - Attending Attestation Patient seen and examined independently, including review of objective data including labs. I agree with plan of care as documented above by the resident with the following comments: 53 M w hx CAD who p/w CP, elevated trop, and this AM despite resolution of pain has anterior TWIs on ECG, all c/w NSTEMI. Taken by cardio to labor conciliator, underwent successful balloon angioplasty to mid LAD lesion. Follow up cardio rec's in AM and ensure pt resumes all meds at discharge. <Bindu Easton - Last Filed: 11/06/18 18:05> (2) COPD (chronic obstructive pulmonary disease) Qualifiers: COPD type: emphysema Emphysema type: unspecified Qualified Code(s): J43.9 - Emphysema, unspecified (4) HTN (hypertension) Qualifiers: Hypertension type: essential hypertension Qualified Code(s): I10 - Essential (primary) hypertension (5) HLD (hyperlipidemia) Qualifiers: Hyperlipidemia type: unspecified Qualified Code(s): E78.5 - Hyperlipidemia, unspecified (6) CAD (coronary artery disease) Qualifiers: Coronary Disease-Associated Artery/Lesion type: [place] artery [place] vs. transplanted heart: shawnee heart Associated angina: angina presence unspecified Qualified Code(s): I25.10 - Atherosclerotic heart disease of [place] coronary artery without angina pectoris (7) DM type 2 (diabetes mellitus, type 2) Qualifiers: Diabetes mellitus custodial insulin use: with custodial use Diabetes mellitus complication status: without complication Qualified Code(s): E11.9 - Type 2 diabetes mellitus without complications; Z79.4 - residential (current) use of insulin
[2018-11-06] MEDS: Acetaminophen 325 MG TABLET PO PRN (16:36)
[2018-11-07 05:23] LABS: BUN/Creatinine Ratio 16 (6-26); Blood Urea Nitrogen 10 mg/dL (6-20); Calcium 8.9 mg/dL (8.6-10.3); Carbon Dioxide 21 mEq/L (23-29); Chloride 107 mEq/L (98-107); Glucose 142 mg/dL (70-105); Osmolality,Calculated 285 (280-300); Potassium 3.9 mEq/L (3.5-5.1); Sodium 137 mEq/L (136-145); eGFR For Non-African Americans > 60 (> 60)
[2018-11-07] MEDS ORDERED: *HR* Heparin 5,000 UNIT/ML VIAL SQ SCH (06:00)
[2018-11-07 07:15] VITALS: BP 136/88
[2018-11-07] MEDS: Acetaminophen 325 MG TABLET PO PRN (08:05)
[2018-11-07] MEDS: Aspirin 81 MG TAB.CHEW PO SCH (08:05)
[2018-11-07] MEDS: *HR* Ticagrelor 90 MG TABLET PO SCH (08:05)
[2018-11-07] MEDS: Insulin LISPRO 300 UNITS/3 ML VIAL SQ SCH ×2 (08:06→12:37)
--- NOTE | 2018-11-07 08:54 | Discharge Summary ---
<Bindu Easton - Last Filed: 11/07/18 12:02> - NOTES TO OUTPATIENT PROVIDER Notes to Outpatient Provider: Mr. Allred will be discharged with metformin, beta ed, high intensity statin, dual antiplatelet therapy and eduar inhibitor Orders not resulted at time of discharge: Pending orders 11/06/18 15:06 ECG 12 lead ECG [ECG] Routine ECG 12 lead ECG [ECG] Stat 11/07/18 07:00 ECG 12 lead ECG [ECG] Routine Date of Encounter: 11/07/18 Time of Encounter: 08:35 - Discharge Diagnosis (1) NSTEMI (non-ST elevated myocardial infarction) Priority: Primary Status: Acute (2) COPD (chronic obstructive pulmonary disease) Priority: Secondary Status: Chronic Qualifiers: COPD type: emphysema Emphysema type: unspecified Qualified Code(s): J43.9 - Emphysema, unspecified (3) Tobacco abuse Priority: Secondary Status: Chronic (4) HTN (hypertension) Priority: Secondary Status: Chronic Qualifiers: Hypertension type: essential hypertension Qualified Code(s): I10 - Essential (primary) hypertension (5) HLD (hyperlipidemia) Priority: Secondary Status: Chronic Qualifiers: Hyperlipidemia type: unspecified Qualified Code(s): E78.5 - Hyperlipidemia, unspecified (6) CAD (coronary artery disease) Priority: Secondary Status: Chronic Qualifiers: Coronary Disease-Associated Artery/Lesion type: [place] artery [place] vs. 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 Allred presented to the ED complaining of chest pain. Initially presented to [place] and was noted to have troponin is 0.06 and an episode of nonsustained ventricular tachycardia. He was then transferred to [facility]. He was continued on IV heparin and started on dual antiplatelet therapy, high intensity statin and beta ed. EDUAR inhibitor was not started due to fear of worsening renal impairment impending catheterization. His troponins were trended and increased to 0.78 and 1.68 overnight. He had EKG changes overnight showing T-wave inversion in leads V2-V5 consistent with anterior ischemia. He underwent left heart catheterization yesterday requiring balloon angioplasty. He was also noted to have hemoglobin A1c of 10 and we discussed diabetic diet. Will be discharged with dual antiplatelet therapy, high intensity statin, beta ed, eduar inhibitor and metformin. He is instructed to take plavix loading dose of 300 mg this evening at 9 pm and can start his 75 mg plavix starting tomorrow. Discharge discussed with: patient - Time Spent with Patient Total time spent providing and/or coordinating discharge services: - Discharge Medications Prescriptions: New Aspirin 81 mg PO DAILY 30 Days #30 tab.chew Atorvastatin [Lipitor] 80 mg PO HS 30 Days #30 tablet Clopidogrel [Plavix] 75 mg PO DAILY 30 Days #30 tablet Lisinopril 2.5 mg PO DAILY 30 Days #30 tablet Metformin HCl [Metformin ER Gastric] 500 mg PO BID 30 Days #60 [id number] Metoprolol [Lopressor] 12.5 mg PO BID 60 Days #60 tablet Nitroglycerin 0.4 mg SL Q5M PRN #15 tab.subl PRN Reason: Chest Pain Home Medications: Aspirin 81 mg PO DAILY 30 Days #30 tab.chew 11/07/18 [Rx] Atorvastatin [Lipitor] 80 mg PO HS 30 Days #30 tablet 11/07/18 [Rx] Clopidogrel [Plavix] 75 mg PO DAILY 30 Days #30 tablet 11/07/18 [Rx] Lisinopril 2.5 mg PO DAILY 30 Days #30 tablet 11/07/18 [Rx] Metformin HCl [Metformin ER Gastric] 500 mg PO BID 30 Days #60 [id number] 11/07/18 [Rx] Metoprolol [Lopressor] 12.5 mg PO BID 60 Days #60 tablet 11/07/18 [Rx] Nitroglycerin 0.4 mg SL Q5M PRN #15 tab.subl 11/07/18 [Rx] Allergies/Adverse Reactions: Allergy/AdvReac Type Severity Reaction Status Date / Time No Known Allergies Allergy Unverified 11/06/18 10:37 Date of admission: 11/05/18 16:16 Primary care physician: Enriqueta Mathews CNP Consults: 11/06/18 08:19 Consult to Cardiology [CONS] Routine Comment: Consulting Provider: Estiven Campa Reason for Consult: chest pain with elevated troponin Call Completed: Yes 11/06/18 15:06 Consult to Cardiac Rehabilitation-Phase1 [CONS] Routine Comment: Reason for Consult: AMI Call Completed: Yes Consult to Nurse Navigator [CONS] Routine Comment: Discharging clinician: Bindu Easton Anticipated date of discharge: 11/07/18 - Constitutional Vitals: Temp Pulse Resp BP Pulse Ox 98.2 F 79 17 136/88 96 11/07/18 07:14 11/07/18 07:14 11/07/18 07:14 11/07/18 07:14 11/07/18 07:14 Exam: Gen: Vitals noted. No acute distress. Appears comfortable. Eyes: anicteric sclerae, moist conjunctivae; no lid-lag; Pupils equal and reactive to light HENT: Atraumatic; oropharynx clear with moist mucous membranes and no mucosal ulcerations; normal hard and soft palate Neck: Trachea midline; supple, no thyromegaly or lymphadenopathy, no carotid bruit Cardiac: RRR, no murmur, +S1/S2. No JVD noted. Pulmonary: CTA bilaterally, no wheezes, rales or rhonchi, equal chest expansion Abdomen: soft, nontender, no guarding, noted umbilical hernia MSK: ROM intact, no joint swelling noted Extremities: no edema, nontender calf; peripheral pulses +2 out of 4 bilateral lower extremities Skin: Normal temperature, turgor; no rash, ulcers or subcutaneous nodules Neuro: moves all extremities, no focal deficits. Psych: Appropriate mood and behavior. A&Ox3 - Patient Status Disposition: Home, Self-Care Condition: Fair Functional capacity at discharge: independent ambulation Overall status at discharge: patient is progressing back to baseline - Discharge Instructions Instructions: Left Heart Catheterization (DC) Follow Up With: Enriqueta Mathews CNP [Primary Care Provider] - - Diet and Activity Activity: increase activity as tolerated Diet: diabetic diet, low fat, low cholesterol <Sebastian Mcleod - Last Filed: 11/07/18 12:50> Date of Encounter: 11/07/18 Date of admission: 11/05/18 16:16 Primary care physician: Enriqueta Mathews CNP Consults: 11/06/18 08:19 Consult to Cardiology [CONS] Routine Comment: Consulting Provider: Estiven Campa Reason for Consult: chest pain with elevated troponin Call Completed: Yes 11/06/18 15:06 Consult to Cardiac Rehabilitation-Phase1 [CONS] Routine Comment: Reason for Consult: AMI Call Completed: Yes Consult to Nurse Navigator [CONS] Routine Comment: - Diet and Activity Activity: increase activity as tolerated (no lifting >5 lbs for 1 week) - Attending Attestation Patient seen and examined. I agree with the discharge plan as documented above by the resident. Darin Allred is a 53 M w hx smoker, morbid obesity, CAD s/p stent, HTN, HLD, DM2, who p/w CP, elevated trop, and anterior TWIs on ECG, all c/w NSTEMI. Placed on heparin gtt and given nitro, with relief of CP. 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 No further chest pain. Pt previously noncompliant with meds due to cost/no insurance, and generic meds as above have been sent to his pharmacy. Will need cardio follow up. Time spent on discharge: 25 minutes
--- NOTE | 2018-11-07 13:39 | Cardiology Progress Note ---
Date of Encounter: 11/07/18 Time of Encounter: 13:34 Assessment and Plan (1) NSTEMI (non-ST elevated myocardial infarction) Current Visit: Yes Status: Acute 53 year old male with CAD with cardiac stents x3 presented with chest pain. He was found to have NSTEMI with rop peaking at 1.64. EKG showed normal sinus rhythm with nonspecific T-wave changes. Patient reported not taking his meds for several months after losing insurance through his work. He underwent cardiac catheterization and received PCI to his mid LAD with drug- eluting stent. There was a 99% stenosis in the distal LAD and 65% stenosis in the pRCA. TTE showed LVEF 60%. Basal septal hypertrophy. No LVOT obstruction. Indeterminate diastolic function. Normal right ventricular structure and function. No significant valvular dysfunction. No pulmonary hypertension. There was no complications from this procedure. Importance of DAPT uninterrupted for a minimum of 1 year reviewed with patient and . She was initially started on Brilinta . Today he is being transitioned to Plavix due to concern for cost. He will receive a 300 mg Plavix load. Discussed and reviewed with Dr. Lyn. Continue statin and beta ed. Outpatient follow-up will be coordinated with [place] [facility]. Cardiology will sign off. (2) CAD (coronary artery disease) Current Visit: Yes Status: Acute H/o prior PCI. See plan above. Qualifiers: Coronary Disease-Associated Artery/Lesion type: [place] artery [place] vs. transplanted heart: [place] heart Associated angina: angina presence unspecified Qualified Code(s): I25.10 - Atherosclerotic heart disease of [place] coronary artery without angina pectoris (3) BMI 40.0-44.9, adult Current Visit: Yes Status: Chronic Lifestyle modification. Discussion w patient/family: The assessment and plan as outlined above was discussed with the patient and/or family members who expressed understanding and agreement. All questions were answered. Thank you for involving us in the care of your patient. Please call with any questions. Subjective Principal diagnosis: NSTEMI Interval history: Patient sitting in chair with family in room. He denies recurrent chest pain, shortness of breath, or dizziness. He denies problems with his right groin access site. Objective General: Conversant, No Apparent Distress HEENT: Atraumatic, Normocephaly, Mucus Membranes Moist Neck: No JVD, Normal carotid pulses Cardiac: Reg Rate and Rhythm, Normal S1 and S2, No Murmur Lungs: Normal Breath Sounds, No Wheeze, Rales, Rhonchi Neuro: Alert and responsive, No focal deficits noted Abdomen: Soft, Non-Tender Skin: No rashes noted on visualized skin Musculoskeletal: No Chest Wall Tenderness Extremities: No Clubbing, No Cyanosis, No Edema, Normal Pulses, Other (Right groin dressing removed. No hematoma. Small amount of ecchymosis noted.) Results 11/06/18 04:00 11/07/18 04:47 Lab Results 11/07/18 04:47 Sodium 137 Potassium 3.9 Chloride 107 Carbon Dioxide 21 L BUN 10 Creatinine 0.62 L Glucose 142 H Calcium 8.9 - Imaging and Cardiology Echo: report reviewed Cardiac cath: report reviewed Consult Discharge Plan - Plan Instructions: Left Heart Catheterization (DC) Referrals: Enriqueta Mathews, [employer] [Primary Care Provider] - Prescriptions: Aspirin 81 mg PO DAILY 30 Days #30 tab.chew Atorvastatin [Lipitor] 80 mg PO HS 30 Days #30 tablet Clopidogrel [Plavix] 75 mg PO DAILY 30 Days #30 tablet Clopidogrel Bisulfate [Plavix] 75 mg PO ONCE 1 Days #4 tablet Lisinopril 2.5 mg PO DAILY 30 Days #30 tablet Metformin HCl [Metformin ER Gastric] 500 mg PO BID 30 Days #60 [id number] Metoprolol [Lopressor] 12.5 mg PO BID 60 Days #60 tablet Nitroglycerin 0.4 mg SL Q5M PRN #15 tab.subl PRN Reason: Chest Pain
--- NOTE | 2018-11-08 09:31 | Electrocardiograph Report ---
[place] [id number] Test Date: 2018-11-06 Pat Name: Darin Allred Department: 103 Room: 2S8 Gender: M [employer] Official: RAUL : 1965 Requested By: Aneudy Zheng Order Number: [id number] Reading MD: Amanda Horner Measurements Intervals [place] Rate: 77 P: 58 VA: 187 QRS: 27 QRSD: 109 T: 90 QT: 399 QTc: 431 Interpretive Statements SINUS RHYTHM MODERATE T-WAVE ABNORMALITY, CONSIDER ANTERIOR ISCHEMIA [-0.1+ mV T WAVE IN V3/V4] Electronically Signed On 11-08-2018 9:30:06 EDT by Amanda Horner
== END 2018-11-07 13:15 | disposition home or self-care (01) | DRG 251 ==
LOC: 2SOUTHHOLD → SUATTDRO 16:16
PROVIDERS: ADMIT Internal Medicine; ATTEND Internal Medicine

== ENCOUNTER 2019-11-26 12:19 | Inpatient (IN) ==
[2019-11-26] MEDS ORDERED: Albuterol 2.5 MG/3 ML NEBULIZER IH PRN (16:58)
[2019-11-26] MEDS ORDERED: Morphine Sulfate Oral CONC 10 MG/0.5 ML ORAL.SYG SL PRN (16:58)
[2019-11-26] MEDS ORDERED: Dextrose Gel 15 GM/37.5 ML TUBE PO PRN ×2 (17:00)
[2019-11-26] MEDS ORDERED: *HR* Dextrose 50 % in Water (Syg) 50 ML SYRINGE IVP PRN (17:00)
[2019-11-26] MEDS ORDERED: D5% in Water 1,000 ML IVC PRN (17:00)
[2019-11-26] MEDS: Insulin LISPRO 300 UNITS/3 ML VIAL SQ SCH (18:58)
[2019-11-26] MEDS: *HR* Heparin 5,000 UNIT/ML VIAL SQ SCH (20:58)
[2019-11-27] MEDS: 0.9 % Sodium Chloride 1,000 ML IVC SCH ×3 (00:16→20:51)
[2019-11-27] MEDS: ceFAZolin 1,000 MG in Water for inj. (sterile) 10 ML IVP SCH ×3 (00:17→17:25)
[2019-11-27] MEDS: Insulin LISPRO 300 UNITS/3 ML VIAL SQ SCH ×3 (00:26→11:21)
[2019-11-27] MEDS: *HR* Heparin 5,000 UNIT/ML VIAL SQ SCH ×3 (05:01→20:50)
[2019-11-27 06:20] LABS: Basophils # 0.1 K/mcL (0.0-0.2); Basophils % 0.9 %; Eosinophils # 0.3 K/mcL (0.0-0.6); Eosinophils % 3.2 %; Hematocrit 45.2 % (37.5-50.1); Hemoglobin 14.4 g/dL (12.9-16.9); Immature Granulocytes % 1.4 % (0-4); Lymphocytes # 3.2 K/mcL (0.6-4.6); Lymphocytes % 39.2 %; Mean Corpuscular HGB Conc 31.9 g/dL (31.6-35.5); Mean Corpuscular Hemoglobin 30.8 pg (28.0-33.3); Mean Corpuscular Volume 96.6 fL (83.0-100.0); Mean Platelet Volume 10.4 fL (9.4-12.4); Monocytes # 0.6 K/mcL (0.0-1.3); Neutrophils # 3.9 K/mcL (1.6-8.9); Platelet Count 211 K/mcL (140-400); Red Blood Count 4.68 M/mcL (4.19-5.50); Red Cell Distribution Width 13.2 % (11.5-14.5); Segmented Neutrophils % 48.3 %; White Blood Count 8.1 K/mcL (4.3-11.1)
[2019-11-27 06:36] LABS: BUN/Creatinine Ratio 16 (6-26); Blood Urea Nitrogen 11 mg/dL (6-20); Carbon Dioxide 25 mEq/L (23-29); Chloride 101 mEq/L (98-107); Glucose 189 mg/dL (70-105); Osmolality,Calculated 284 (280-300); Potassium 3.7 mEq/L (3.5-5.1); Sodium 135 mEq/L (136-145); eGFR For African Americans > 60 (> 60); eGFR For Non-African Americans > 60 (> 60)
[2019-11-27] MEDS ORDERED: lisinopriL 10 MG TABLET PO SCH (09:00)
[2019-11-27] MEDS ORDERED: Nicotine 21 MG PATCH.TD24 TD SCH (09:00)
[2019-11-27] MEDS ORDERED: Isosorbide MONOnitrate (24 HR) 30 MG TAB.ER.24H PO SCH (09:00)
[2019-11-27] MEDS ORDERED: Metoprolol XL (24 HR) Succ 25 MG TAB.ER.24H PO SCH (09:00)
[2019-11-27] MEDS ORDERED: Aspirin Enteric Coated 81 MG Tablet PO SCH (12:00)
[2019-11-27] MEDS ORDERED: *HR* FentaNYL (PF) 100 MCG/2 ML VIAL ONE ×2 (16:28→17:37)
[2019-11-27] MEDS ORDERED: *HR* Propofol 200 MG/20 ML VIAL IVP ONE (16:29)
[2019-11-27] MEDS ORDERED: Dexamethasone 4 MG/ML VIAL ONE (16:29)
[2019-11-27] MEDS ORDERED: Lidocaine -MPF 2% 2 ML VIAL ONE (16:29)
[2019-11-27] MEDS ORDERED: Ondansetron 4 MG/2 ML VIAL ONE (16:29)
[2019-11-27] MEDS ORDERED: *HR* HYDROmorphone PF 0.5 MG/0.5 ML SYRINGE IVP PRN (17:00)
[2019-11-27] MEDS ORDERED: Ondansetron 4 MG/2 ML VIAL IVP ONE (17:00)
[2019-11-27] MEDS ORDERED: *HR* OxyCODONE Immed Rel 5 MG TABLET PO PRN (17:00)
[2019-11-27] MEDS ORDERED: Famotidine 20 MG/2 ML VIAL ONE (17:03)
[2019-11-27] MEDS ORDERED: Acetaminophen IV 1,000 MG/100 ML INFUS..BTL ONE (17:03)
[2019-11-27] MEDS ORDERED: Ketorolac 30 MG/ML VIAL ONE (17:35)
[2019-11-27] MEDS ORDERED: EPHEDrine 50 MG/ML VIAL ONE (17:44)
[2019-11-27] MEDS ORDERED: *HR* HYDROMORPHONE 2 MG/ML VIAL ONE (18:32)
[2019-11-27] MEDS ORDERED: *HR* Dextrose 50 % in Water (Syg) 50 ML SYRINGE IVP PRN (19:23)
[2019-11-27] MEDS ORDERED: *HR* OxyCODONE/APAP 5/325 TABLET PO PRN (19:23)
[2019-11-27] MEDS ORDERED: Morphine Sulfate Oral CONC 10 MG/0.5 ML ORAL.SYG SL PRN (19:23)
[2019-11-27] MEDS ORDERED: Albuterol 2.5 MG/3 ML NEBULIZER IH PRN (19:23)
[2019-11-27] MEDS ORDERED: D5% in Water 1,000 ML IVC PRN (19:23)
[2019-11-27] MEDS ORDERED: Dextrose Gel 15 GM/37.5 ML TUBE PO PRN ×2 (19:23)
[2019-11-27] MEDS ORDERED: Famotidine 20 MG/2 ML VIAL IVP ONE (22:25)
[2019-11-27] MEDS ORDERED: methylPREDNISolone 125 MG/2 ML VIAL IVP ONE (22:27)
[2019-11-27] MEDS ORDERED: methylPREDNISolone 125 MG/2 ML VIAL ONE (22:28)
[2019-11-28] MEDS ORDERED: Insulin LISPRO 300 UNITS/3 ML VIAL SQ SCH
[2019-11-28] MEDS: ceFAZolin 1,000 MG in Water for inj. (sterile) 10 ML IVP SCH ×4 (00:03→23:46)
[2019-11-28 01:04] LABS: BUN/Creatinine Ratio 19 (6-26); Blood Urea Nitrogen 15 mg/dL (6-20); Calcium 8.6 mg/dL (8.6-10.3); Carbon Dioxide 20 mEq/L (23-29); Chloride 102 mEq/L (98-107); Glucose 322 mg/dL (70-105); Osmolality,Calculated 285 (280-300); Potassium 4.3 mEq/L (3.5-5.1); Sodium 131 mEq/L (136-145); eGFR For African Americans > 60 (> 60); eGFR For Non-African Americans > 60 (> 60)
[2019-11-28 04:15] LABS: Chol/HDL Ratio 8.3 (0-4.9); Cholesterol 199 mg/dL (< 200); HDL Cholesterol 24 mg/dL (40-59); Triglycerides 429 mg/dL (< 150)
[2019-11-28] MEDS: *HR* Heparin 5,000 UNIT/ML VIAL SQ SCH ×2 (05:00→15:30)
[2019-11-28] MEDS: Insulin LISPRO 300 UNITS/3 ML VIAL SQ SCH ×5 (07:14→20:25)
[2019-11-28] MEDS ORDERED: *HR* HYDROcodone/Acet 5/325 mg TABLET PO PRN (07:52)
[2019-11-28] MEDS ORDERED: lisinopriL 10 MG TABLET PO SCH (09:00)
[2019-11-28] MEDS: Nicotine 21 MG PATCH.TD24 TD SCH (10:17)
[2019-11-28] MEDS: Aspirin Enteric Coated 81 MG Tablet PO SCH (10:17)
[2019-11-28] MEDS: Isosorbide MONOnitrate (24 HR) 30 MG TAB.ER.24H PO SCH (10:18)
[2019-11-28] MEDS: Metoprolol XL (24 HR) Succ 25 MG TAB.ER.24H PO SCH (10:18)
[2019-11-28] MEDS: 0.9 % Sodium Chloride 1,000 ML IVC SCH (12:35)
[2019-11-28] MEDS: amLODIPine 5 MG TABLET PO SCH (17:53)
[2019-11-29 02:21] LABS: Basophils % 0.3 %; Eosinophils # 0.1 K/mcL (0.0-0.6); Eosinophils % 0.5 %; Hematocrit 39.3 % (37.5-50.1); Immature Granulocytes % 1.4 % (0-4); Lymphocytes # 3.1 K/mcL (0.6-4.6); Lymphocytes % 26.5 %; Mean Corpuscular HGB Conc 32.1 g/dL (31.6-35.5); Mean Corpuscular Hemoglobin 30.4 pg (28.0-33.3); Mean Corpuscular Volume 94.9 fL (83.0-100.0); Mean Platelet Volume 10.7 fL (9.4-12.4); Monocytes # 0.7 K/mcL (0.0-1.3); Monocytes % 6.2 %; Neutrophils # 7.7 K/mcL (1.6-8.9); Platelet Count 217 K/mcL (140-400); Red Blood Count 4.14 M/mcL (4.19-5.50); Red Cell Distribution Width 12.8 % (11.5-14.5); Segmented Neutrophils % 65.1 %; White Blood Count 11.9 K/mcL (4.3-11.1)
[2019-11-29 02:25] LABS: Hemoglobin 12.6 g/dL (12.9-16.9)
[2019-11-29 02:45] LABS: BUN/Creatinine Ratio 23 (6-26); Blood Urea Nitrogen 14 mg/dL (6-20); Calcium 8.4 mg/dL (8.6-10.3); Carbon Dioxide 22 mEq/L (23-29); Chloride 107 mEq/L (98-107); Glucose 182 mg/dL (70-105); Magnesium 1.8 mg/dL (1.6-2.6); Osmolality,Calculated 291 (280-300); Potassium 3.8 mEq/L (3.5-5.1); Sodium 138 mEq/L (136-145); eGFR For African Americans > 60 (> 60); eGFR For Non-African Americans > 60 (> 60)
[2019-11-29 02:54] LABS: Thyroid Stimulating Hormone 1.623 mcIU/mL (0.340-5.600)
[2019-11-29] MEDS: 0.9 % Sodium Chloride 1,000 ML IVC SCH (04:40)
[2019-11-29] MEDS: Nicotine 21 MG PATCH.TD24 TD SCH (07:59)
[2019-11-29] MEDS: amLODIPine 5 MG TABLET PO SCH (08:01)
[2019-11-29] MEDS: Metoprolol XL (24 HR) Succ 25 MG TAB.ER.24H PO SCH (08:01)
[2019-11-29] MEDS: Aspirin Enteric Coated 81 MG Tablet PO SCH (08:01)
[2019-11-29] MEDS: Isosorbide MONOnitrate (24 HR) 30 MG TAB.ER.24H PO SCH (08:01)
[2019-11-29] MEDS: Insulin LISPRO 300 UNITS/3 ML VIAL SQ SCH ×4 (08:02→20:50)
[2019-11-29] MEDS: ceFAZolin 1,000 MG in Water for inj. (sterile) 10 ML IVP SCH ×3 (08:05→23:52)
[2019-11-29 08:18] LABS: Estimated Average Glucose 223 mg/dl
[2019-11-29 12:10] LABS: Basophils # 0.1 K/mcL (0.0-0.2); Basophils % 0.5 %; Eosinophils # 0.1 K/mcL (0.0-0.6); Eosinophils % 1.1 %; Hemoglobin 13.5 g/dL (12.9-16.9); Immature Granulocytes % 1.8 % (0-4); Lymphocytes # 2.9 K/mcL (0.6-4.6); Lymphocytes % 28.9 %; Mean Corpuscular HGB Conc 32.1 g/dL (31.6-35.5); Mean Corpuscular Volume 96.3 fL (83.0-100.0); Mean Platelet Volume 10.3 fL (9.4-12.4); Monocytes # 0.7 K/mcL (0.0-1.3); Platelet Count 214 K/mcL (140-400); Red Blood Count 4.36 M/mcL (4.19-5.50); Segmented Neutrophils % 60.7 %
[2019-11-29 12:30] LABS: Albumin 3.8 g/dL (3.5-5.7); Albumin/Globulin Ratio 1.5 (1.1-2.2); Bilirubin,Direct 0.1 mg/dL (0.0-0.2); Bilirubin,Indirect 0.3 mg/dL (0.0-1.0); Bilirubin,Total 0.4 mg/dL (0.3-1.0); Globulin 2.6 g/dL (2.4-3.5); Total Protein 6.4 g/dL (6.4-8.9)
[2019-11-29 12:32] LABS: BUN/Creatinine Ratio 18 (6-26); Blood Urea Nitrogen 14 mg/dL (6-20); Calcium 8.6 mg/dL (8.6-10.3); Carbon Dioxide 24 mEq/L (23-29); Chloride 105 mEq/L (98-107); Glucose 222 mg/dL (70-105); Magnesium 1.7 mg/dL (1.6-2.6); Osmolality,Calculated 293 (280-300); Potassium 3.7 mEq/L (3.5-5.1); Sodium 138 mEq/L (136-145); Troponin I < 0.03 ng/mL (< 0.04); eGFR For African Americans > 60 (> 60); eGFR For Non-African Americans > 60 (> 60)
[2019-11-29] MEDS ORDERED: Nitroglycerin 0.4 MG TAB.SUBL SL PRN (17:26)
[2019-11-30 06:53] VITALS: BP 152/94
[2019-11-30] MEDS: Aspirin Enteric Coated 81 MG Tablet PO SCH (07:34)
[2019-11-30] MEDS: Metoprolol XL (24 HR) Succ 25 MG TAB.ER.24H PO SCH (07:35)
[2019-11-30] MEDS: ceFAZolin 1,000 MG in Water for inj. (sterile) 10 ML IVP SCH (07:35)
[2019-11-30] MEDS: Isosorbide MONOnitrate (24 HR) 30 MG TAB.ER.24H PO SCH (07:35)
[2019-11-30] MEDS: amLODIPine 5 MG TABLET PO SCH (07:35)
[2019-11-30] MEDS: Insulin LISPRO 300 UNITS/3 ML VIAL SQ SCH (07:36)
[2019-11-30 09:22] LABS: Basophils # 0.1 K/mcL (0.0-0.2); Basophils % 0.6 %; Eosinophils # 0.2 K/mcL (0.0-0.6); Eosinophils % 2.1 %; Hematocrit 41.6 % (37.5-50.1); Hemoglobin 13.3 g/dL (12.9-16.9); Immature Granulocytes % 2.3 % (0-4); Lymphocytes # 2.9 K/mcL (0.6-4.6); Lymphocytes % 33.1 %; Mean Corpuscular Hemoglobin 30.4 pg (28.0-33.3); Mean Platelet Volume 10.3 fL (9.4-12.4); Monocytes # 0.6 K/mcL (0.0-1.3); Monocytes % 6.6 %; Neutrophils # 4.8 K/mcL (1.6-8.9); Platelet Count 213 K/mcL (140-400); Red Blood Count 4.38 M/mcL (4.19-5.50); Segmented Neutrophils % 55.3 %; White Blood Count 8.6 K/mcL (4.3-11.1)
[2019-11-30 09:41] LABS: BUN/Creatinine Ratio 14 (6-26); Blood Urea Nitrogen 10 mg/dL (6-20); Calcium 8.7 mg/dL (8.6-10.3); Carbon Dioxide 23 mEq/L (23-29); Chloride 105 mEq/L (98-107); Glucose 197 mg/dL (70-105); Magnesium 1.7 mg/dL (1.6-2.6); Osmolality,Calculated 289 (280-300); Potassium 3.7 mEq/L (3.5-5.1); Sodium 137 mEq/L (136-145); eGFR For African Americans > 60 (> 60); eGFR For Non-African Americans > 60 (> 60)
== END 2019-11-30 09:51 | disposition home or self-care (01) | DRG 354 ==
LOC: 3ANU → SUATTDRO 11-28 13:03
PROVIDERS: ADMIT Surgery; ATTEND Pharmacist